=== PATIENT | female | born 1955 | race Caucasian/White ===

== ENCOUNTER 2016-12-14 18:28 | Emergency (ER) | payer OTHER ==
[~2016-12-14] VITALS: Ht 149.9 cm; Wt 63.0 kg
[~2016-12-14 18:28] MED LIST: ASPI-664 PO; BENA10TA48 PO; GLIP-95 PO; HYDR-3498 PO; LANT3I SC; LEVO500T72 PO; METR500T PO; MTF1000T PO; NAPR-688 PO; NITR-58 PO
[2016-12-14 18:37] VITALS: Ht 149.9 cm; Wt 63.0 kg
--- NOTE | 2016-12-14 19:59 | ERD ---
ER Documentation Chief Complaint Date/Time DATE: 12/14/16 TIME: 19:56 Chief Complaint sent by for ultrasound recheck of cysts in uterus. HPI Patient is a 7-year-old female with past medical history of hypertension, diabetes, hyperlipidemia, s/p cholecystectomy, s/p 3, fibroids removal who presents to the emergency department for pelvic pain x 3 days. Patient reports she has had pelvic pain in the past however over the last 2 days her pain has become significantly worse. Patient was sent to the ED by her primary care physician Dr. Meadows for a pelvic ultrasound.. Patient states that she does have a history of "uterine cyst". Patient states 3 days ago she had one episode of vaginal bleeding. Bleeding is now resolved completely. Prior to this patient last had her period 10 years ago. Patient does report some suprapubic tenderness however she denies any radiation of the pain. Patient denies any fevers, chills, nausea, vomiting, pain with urination, frequency, urgency or hematuria. Patient reports normal daily bowel movements. ROS All systems reviewed and are negative except as per history of present illness. Medications Home Meds Active Scripts Nitrofurantoin Monohyd Macrocr* (Macrobid*) 100 Mg Capsr, 100 MG PO BID for 5 Days, CAP Prov:CORNELIA BETANCOURT PA-C 12/14/16 Ibuprofen* (Motrin*) 400 Mg Tab, 400 MG PO Q6, #30 TAB Prov:CORNELIA BETANCOURT PA-C 12/14/16 Nitrofurantoin Monohyd Macrocr (Macrobid) 100 Mg Capsr, 100 MG PO BID, #14 CAP Prov:ACACIA BAE PA-C 08/23/15 Naproxen* (Naproxen*) 500 Mg Tablet, 500 MG PO BID Y for PAIN, #30 TAB Prov:ACACIA BAE PA-C 08/23/15 Metronidazole* (Flagyl*) 500 Mg Tablet, 500 MG PO TID for 7 Days, TAB Prov:BENJI BERRY MD 05/04/15 Levofloxacin* (Levaquin*) 500 Mg Tablet, 500 MG PO DAILY for 7 Days, TAB Prov:BENJI BERRY MD 05/04/15 Hydrocodone Bit-Acetaminophen* ([place]*) 5-325 Mg Tab, 1 TAB PO Q6 Y for PAIN, # 7 TAB Prov:BENJI BERRY MD 05/04/15 Reported Medications Metformin* (Glucophage*) 1,000 Mg Tablet, 1000 MG PO BID, TAB 05/04/15 Aspirin* (Aspirin* EC) 81 Mg Tablet.dr, 81 MG PO DAILY, TAB 05/04/15 Benazepril Hcl* (Benazepril Hcl*) 10 Mg Tablet, 10 MG PO DAILY, TAB 05/04/15 Glipizide* (Glipizide*) 10 Mg Tablet, 10 MG PO BID, TAB 05/04/15 Insulin Glargine* (Lantus*) 100 Unit/Ml Soln, 30 UNIT SC DAILY, EA 05/04/15 Allergies Allergies: Coded Allergies: No Known Allergy (Unverified , 12/14/16) PMhx/Soc History of Surgery: Yes (CHOLECYSTECTOMY, C SECTION X 3, OVARIAN CYST REMOVAL) Anesthesia Reaction: No Hx Neurological Disorder: No Hx Respiratory Disorders: No Hx Cardiac Disorders: Yes (HTN) Hx Miscellaneous Medical Probl: Yes (DIABETES.) Hx Alcohol Use: No Hx Substance Use: No Hx Tobacco Use: No FmHx Family History: diabetes Physical Exam Vitals Vital Signs Date Time Temp Pulse Resp B/P Pulse Ox O2 Delivery O2 Flow Rate FiO2 12/14/16 21:40 98.6 68 16 147/76 98 Room Air 12/14/16 18:37 97.4 77 18 135/82 97 Physical Exam GENERAL: Well-developed, well-nourished female. Appears in no acute distress. HEAD: Normocephalic, atraumatic. EYES: Pupils are equally reactive bilaterally. EOMs grossly intact. No conjunctival erythema. ENT: Moist mucous membranes. No uvula deviation. No kissing tonsils. NECK: Supple. No meningismus. Normal range of motion of the neck. LUNG: Clear to auscultation bilaterally. No rhonchi, wheezing, rales or coarse breath sounds. HEART: Regular rate and rhythm. No murmurs, rubs or gallops. ABDOMEN: No scars, ecchymosis or rashes noted. Soft and nondistended. Tender to palpation of the suprapubic region. Positive bowel sounds in all four quadrants. No rebound tenderness, no guarding. (-) McBurney's point tenderness. No CVA tenderness. BACK: No midline tenderness. EXTREMITIES: Equal pulses bilaterally. No peripheral clubbing, cyanosis or edema. No unilateral leg swelling. NEUROLOGIC: Alert and oriented. Moving all four extremities without any difficulty. Normal speech. Steady gait. SKIN: Normal color. Warm and dry. No rashes or lesions. Results 24 hrs Laboratory Tests Test 12/14/16 20:02 Bedside Urine pH (LAB) 6.0 Bedside Urine Protein (LAB) Negative Bedside Urine Glucose (UA) 0.1% Bedside Urine Ketones (LAB) Negative Bedside Urine Blood Trace-intact Bedside Urine Nitrite (LAB) Negative Bedside Urine Leukocyte Esterase (L 1+ Procedures/MDM ED COURSE: The patient was stable throughout ED course. I kept the patient and/or family informed of laboratory and diagnostic imaging results throughout the ED course. DIAGNOSTIC IMAGING: Read by radiologist. DIAGNOSTIC IMAGING REPORT Patient: ANT HERRON : 1955 Age: 61 Sex: F MR #: [id number] DOS: 12/14/161950 Ordering MD: CORNELIA BETANCOURT PA-C Location: [facility] Room/Bed: PROCEDURE: US Pelvis. CLINICAL INDICATION: Pelvic pain. Vaginal bleeding TECHNIQUE: Multiple sonographic images of the pelvis were obtained utilizing a transabdominal and endovaginal technique. The images were reviewed on a PACS workstation. COMPARISON: 08/23/2015 FINDINGS: Uterus: Ovoid hypoechoic circumscribed intramural mass within the anterior fundus now measures 4.1 x 2.4 x 2 cm. A second intramural leiomyoma is not visible measuring 3 x 2.3 x 2.2 cm. Overall uterine size is estimated at 5.7 x 5.6 x 3.4 cm. Cervix: No abnormalities of significance are seen. Endometrium: Normal in thickness; 3.5 mm. Right ovary / adnexa: The ovary is not visualized. There is no evidence of adnexal mass. Left ovary/adnexa: The ovary is not visualized. There is no evidence of adnexal mass. Cul-de-sac: No evidence of free fluid. RPTAT:HJJR IMPRESSION: 1. Intramural leiomyomata are demonstrated, the largest currently measured at 3.1 cm, the previous 5.2 cm measurement on the study of 08/23/2015 combined the 2 separate fibroids. 2. Normal endometrial thickness of 3.5 mm. 3. The ovaries are not visualized. Physician Pilar Date Time Electronically viewed and signed by Lucas Ochoa Physician on 12/14/2016 20:52 JR/ CC: CORNELIA BETANCOURT PA-C MEDICAL DECISION MAKING: This is a 61-year-old female with PMHx of fibroids who presents with worsening pelvic pain 3 days. Patient referred to ED by PCP for pelvic US. Vital signs were reviewed. Patient was afebrile. Patient was not hypoxic. Urine dip showed 1 + leukocyte esterase. Pelvic US showed Intramural leiomyomata are demonstrated, the largest currently measured at 3.1 cm, the previous 5.2 cm measurement on the study of 08/23/2015 combined the 2 separate fibroids. Normal endometrial thickness of 3.5 mm. The ovaries are not visualized. Given these findings, the patients presentation is most consistent with fibroids and UTI. I have a much lower clinical concern for ectopic , ovarian torsion, PID, tubo-ovarian abscess, vulvovaginitis, uterine prolapse, nephrolithiasis, pyelonephritis, appendicitis, diverticulitis, bowel obstruction, perirectal abscess. nable to rule out malignancy at this time. Patient advised that she will need to follow-up with her [facility] doctor for biopsy. Patient provided with a copy of all imaging studies and labwork to show PCP/OBGYN. PRESCRIPTIONS: Ibuprofen, Macrobid DISCHARGE: At this time, patient is stable for discharge and outpatient management. I have instructed the patient to follow-up with his/her primary care physician in 1-2 days. I have discussed with the patient the possibility of needing to see a specialist for further workup and diagnostic studies if the pain persists. I have instructed the patient to promptly return to the ER at any time for any new or worsening symptoms including increased pain, nausea, vomiting, vaginal bleeding, weakness or fever. The patient and/or family expressed understanding of and agreement with this plan. All questions were answered. Home care instructions were provided. Departure Diagnosis: Primary Impression: Pelvic pain Condition: Stable Patient Instructions: Pelvic Pain, Unknown Cause Referrals: [facility] REFERRAL LIST Additional Instructions: Llame al doctor NATY y keily lacey NATALIE PARA DENTRO DE 1-2 PALENCIA.Dgale a la secretaria que nosotros le instruimos hacer esta natalie.Avise o llame si eastman condicin se empeora antes de la natalie. Regresa aqui si peor o no mejor. Unable to rule out malignancy at this time. Patient will need to follow-up with an [facility] for further workup and management of her symptoms. CORNELIA BETANCOURT PA-C Dec 14, 2016 19:59
[2016-12-14 20:02] LABS: URINE BLOOD (Dip) POC Trace-intact (NEGATIVE)
--- NOTE | 2016-12-14 20:52 | RADRPT ---
PROCEDURE: US Pelvis. CLINICAL INDICATION: Pelvic pain. Vaginal bleeding TECHNIQUE: Multiple sonographic images of the pelvis were obtained utilizing a transabdominal and endovaginal technique. The images were reviewed on a PACS workstation. COMPARISON: 08/23/2015 FINDINGS: Uterus: Ovoid hypoechoic circumscribed intramural mass within the anterior fundus now measures 4.1 x 2.4 x 2 cm. A second intramural leiomyoma is not visible measuring 3 x 2.3 x 2.2 cm. Overall uteri ne size is estimated at 5.7 x 5.6 x 3.4 cm. Cervix: No abnormalities of significance are seen. Endometrium: Normal in thickness; 3.5 mm. Right ovary / adnexa: The ovary is not visualized. There is no evidence of adnexal mass. Left ovary/adnexa: The ovary is not visualized. There is no evidence of adnexal mass. Cul-de-sac: No evidence of free fluid. RPTAT:HJJR IMPRESSION: 1. Intramural leiomyomata are demonstrated, the largest currently measured at 3.1 cm, the previous 5 .2 cm measurement on the study of 08/23/2015 combined the 2 separate fibroids. 2. Normal endometrial thickness of 3.5 mm. 3. The ovaries are not visualized. Physician Pilar Date Time Electronically viewed and signed by Physician Pilar on 12/14/2016 20:52 JR/
[2016-12-14] MEDS ORDERED: IBUP400T22 PO (21:26)
[2016-12-14] MEDS ORDERED: NITR-58 PO (21:27)
[2016-12-14 21:40] VITALS: BP 147/76; PULSE 68; RESP 16; TEMP 98.6
== END 2016-12-14 21:41 | disposition home or self-care (01) ==
LOC: FTE 18:28
DX: R10.2 Pelvic and perineal pain (principal); I10 Essential (primary) hypertension; E11.9 Type 2 diabetes mellitus without complications; Z79.4 Long term (current) use of insulin; Z79.82 Long term (current) use of aspirin; Z79.84 Long term (current) use of oral hypoglycemic drugs
CPT/HCPCS: 76830; 76856; 81003; Z7502